=== PATIENT | male | born 1975 | race Caucasian/White ===

== ENCOUNTER → 2016-06-12 | Outpatient (CLI) | payer BC ==
--- NOTE | 2016-06-12 14:05 | DI ---
Indication: ITS.REASON: M54.2 NECK PAIN; R51 HEADACHE PROCEDURE: MRI BRAIN W/O CONTRAST: Encounter: Initial Comparisons: None. Technique: Multiplanar, multisequence, MR imaging of the head without contrast was acquired. FINDINGS: The ventricles are of normal size, shape, and contour for the patient's age. The brain stem, cerebellum, and cerebral hemispheres have a normal morphologic appearance as well as MR signal intensity on all pulse sequences. There are no areas of restricted diffusion on diffusion weighted imaging to suggest an acute infarct. There is no evidence of an intracranial mass lesion, intracranial hemorrhage, or hydrocephalus. The visualized portions of the orbits, calvarium, paranasal sinuses, and skull base demonstrate no significant abnormality. IMPRESSION: Normal exam .
--- NOTE | 2016-06-12 14:08 | DI ---
Indication: ITS.REASON: M54.2 NECK PAIN; R51 HEADACHE PROCEDURE: MRI CERVICAL SPINE W/O CONTRAS: Encounter: Initial Comparison: Cervical spine MRI dated March 13, 2015 Technique: Multiplanar multisequence MR imaging of the cervical spine was performed without contrast. Findings: Alignment of the cervical spine is stable with straightening and loss of the normal lordosis. Bone marrow signal intensity is normal. No acute fracture or subluxation. The cervical and visualized upper thoracic spinal cord signal intensity is normal. Paraspinal soft tissues are within normal limits. Segmental analysis: C2-C3: Normal C3-C4: Bilobed disk osteophyte complex resulting in minimal bilateral neural foraminal narrowing. No central canal stenosis. C4-C5: Normal C5-C6: Normal C6-C7: Normal C7-T1: Normal Impression: Minimal degenerative change at C3-C4, otherwise normal exam. .
== END ==
LOC: IMA 12:27
PROVIDERS: ATTEND Family Medicine Sports Medicine
DX: M50.31 Other cervical disc degeneration, high cervical region (principal); M54.2 Cervicalgia; R51 Headache